=== PATIENT | female | born 1960 | race African-American/Black ===

== ENCOUNTER 2016-12-07 03:52 | Emergency (ER) | payer OTHER ==
[2014-05-23 12:26] VITALS: BP 136/85
[~2016-12-07] VITALS: Ht 170.2 cm; Wt 68.0 kg
[~2016-12-07 03:52] MED LIST: AMLO5TAB2 PO; CYCL10TA2 PO; DICL100G7 TP; FERR325C PO; HYDR-2666 PO; METF500T4 PO; OLME1TAB PO; OMEP40CA2 PO; RANI150T6 PO; ZOLP12.52 PO
[2016-12-07] MEDS ORDERED: ONDANSETRON ODT 4 MG TAB.RAPDIS PO ONE (05:15)
[2016-12-07] MEDS ORDERED: KETOROLAC TROMETHAMINE 60 MG/2 ML SYRINGE. IM ONE (05:15)
[2016-12-07 05:22] LABS: OBC FLU VALID
[2016-12-07] MEDS ORDERED: ONDA4TAB7 PO (05:47)
--- NOTE | 2016-12-07 05:47 | PHYS DOC ---
Past Medical History Past Medical History: Diabetes-Type II, Hypertension Past Surgical History: No Surgical History Alcohol Use: None Drug Use: None Adult General Chief Complaint Chief Complaint: FLU SYMPTOM HPI HPI This is a healthy 55-year-old female who has had ongoing influenza illness for the last week. Patient tested positive for influenza approximately one week ago and is still having significant congestion, nausea, vomiting, and bodyaches. She reports continued cough with her symptoms. She denies any significant chest pain or shortness of breath. She does have history of hypertension and diabetes. Review of Systems Review of Systems Constitutional: Has fever, has chills [] Eyes: Denies change in visual acuity, redness, or eye pain [] HENT: Denies nasal congestion or sore throat [] Respiratory: Denies cough or shortness of breath [] Cardiovascular: No additional information not addressed in HPI [] GI: Denies abdominal pain, has nausea, has vomiting, denies bloody stools or diarrhea [] : Denies dysuria or hematuria [] Musculoskeletal: Denies back pain or joint pain [] Integument: Denies rash or skin lesions [] Neurologic: Denies headache, focal weakness or sensory changes [] Endocrine: Denies polyuria or polydipsia [] Current Medications Current Medications Current Medications Medications (Trade) Dose Ordered Sig/[facility] Start Time Stop Time Status Last Admin Dose Admin Ketorolac Tromethamine (Toradol Im) 60 mg 1X ONCE 12/07/16 05:15 12/07/16 05:16 DC 12/07/16 05:33 60 MG Ondansetron HCl (Zofran Odt) 4 mg 1X ONCE 12/07/16 05:15 12/07/16 05:16 DC 12/07/16 05:33 4 MG Allergies Allergies Allergies Coded Allergies Type Severity Reaction Last Updated Verified No Known Drug Allergies 05/23/14 No Physical Exam Physical Exam Constitutional: Well developed, well nourished, no acute distress, non-toxic appearance. [] HENT: Normocephalic, atraumatic, bilateral external ears normal, oropharynx moist, no oral exudates, nose normal. [] Eyes: PERRLA, EOMI, conjunctiva normal, no discharge. [] Neck: Normal range of motion, no tenderness, supple, no stridor. [] Cardiovascular:Heart rate regular rhythm, no murmur [] Lungs & Thorax: Bilateral breath sounds clear to auscultation [] Abdomen: Bowel sounds normal, soft, no tenderness, no masses, no pulsatile masses. [] Skin: Warm, dry, no erythema, no rash. [] Back: No tenderness, no CVA tenderness. [] Extremities: No tenderness, no cyanosis, no clubbing, ROM intact, no edema. [] Neurologic: Alert and oriented X 3, normal motor function, normal sensory function, no focal deficits noted. [] Psychologic: Affect normal, judgement normal, mood normal. [] Current Patient Data Vital Signs Vital Signs Date Time Temp Pulse Resp B/P Pulse Ox O2 Delivery O2 Flow Rate FiO2 12/07/16 04:45 99.2 107 16 97 Room Air 99.2 Lab Values Laboratory Tests Test 12/07/16 04:38 Influenza Type A Antigen Positive (NEGATIVE) Influenza Type B Antigen Negative (NEGATIVE) EKG EKG [] Radiology/Procedures Radiology/Procedures One view of the chest as interpreted by me and the radiologist does not reveal an acute cardiopulmonary process. Course & Med Decision Making Course & Med Decision Making Pertinent Labs and Imaging studies reviewed. (See chart for details) This 55-year-old female appears nontoxic in appearance and tested positive for influenza type A. Her chest film was negative. There is no indication at this time to perform any laboratory workup. I will be prescribing her a course of Tessalon Perles and Zofran for her symptoms with strict instruction remain well- hydrated at home. She is outside the window to treat with any Tamiflu Dragon Disclaimer Dragon Disclaimer This electronic medical record was generated, in whole or in part, using a voice recognition dictation system. Departure Departure Impression: Primary Impression: Influenza A Disposition: 01 HOME, SELF-CARE Admitting Physician: Other Condition: STABLE Referrals: ELIDIA CAMACHO MD (PCP) Patient Instructions: Influenza A (H1N1) Additional Instructions: Please follow up with your primary doctor in the next 2-3 days for your flu- like symptoms. Take zofran for any nausea. Continue to stay well hydrated. Return to the ER if you develop any worsening of your symptoms. Scripts Benzonatate (Tessalon Perle)100 Mg [id number] Mg PO TID PRN COUGH #15 CAP Prov:FERNANDA AKINS DO 12/07/16 Ondansetron Hcl (Zofran)4 Mg Tablet4 Mg PO BID PRN NAUSEA/VOMITING #10 TAB Prov:FERNANDA AKINS DO 12/07/16 FERNANDA AKINS DO Dec 07, 2016 05:47
[2016-12-07] MEDS ORDERED: BENZ100C PO (05:56)
--- NOTE | 2016-12-07 07:31 | RAD ---
Single view chest History:Cough tonight An AP view of the chest is submitted. Comparison: 05/30/2013. Findings: There is no significant infiltrate, pleural effusion, or pneumothorax. The pericardial cardiac silhouette is within normal limits in size. The trachea is in the midline. There is atherosclerotic carotid calcification aortic arch. Impression: There is no evidence of acute cardiopulmonary disease.
== END 2016-12-07 06:09 | disposition home or self-care (01) ==
LOC: ER 03:52
DX: J09.X2 Influenza due to identified novel influenza A virus with other respiratory manifestations (principal); R11.2 Nausea with vomiting, unspecified; E11.9 Type 2 diabetes mellitus without complications; I10 Essential (primary) hypertension
CPT/HCPCS: 71010; 87804; 96372; 99285; J1885; Q0162

== ENCOUNTER → 2018-01-19 | Day surgery (SDC) | payer OTHER ==
[~2018-01-19] MED LIST changes: -AMLO5TAB2 PO; -CYCL10TA2 PO; -DICL100G7 TP; -FERR325C PO; -HYDR-2666 PO; -METF500T4 PO; -OLME1TAB PO; -OMEP40CA2 PO; +PROPOFOL 40 ML IV; -RANI150T6 PO; -ZOLP12.52 PO
[2018-01-19] MEDS: IV RINGERS,LACTATED 500ML 500 ML IV (08:43)
== END | disposition home or self-care (01) ==
LOC: SURG 07:50
DX: Z09 Encounter for follow-up examination after completed treatment for conditions other than malignant neoplasm (principal); Z86.010 Personal history of colon polyps; F41.9 Anxiety disorder, unspecified; I10 Essential (primary) hypertension; F32.9 Major depressive disorder, single episode, unspecified; E11.9 Type 2 diabetes mellitus without complications; D64.9 Anemia, unspecified; Z87.440 Personal history of urinary (tract) infections; G89.29 Other chronic pain; Z98.51 Tubal ligation status; Z98.890 Other specified postprocedural states; Z79.84 Long term (current) use of oral hypoglycemic drugs; Z79.899 Other long term (current) drug therapy
CPT/HCPCS: 45378; J2704

== ENCOUNTER → 2018-02-01 | Outpatient (CLI) | payer OTHER | END | disposition home or self-care (01) | LOC: US 07:58 | DX: N18.2 Chronic kidney disease, stage 2 (mild) (principal) | CPT/HCPCS: 76770 ==

== ENCOUNTER → 2020-03-27 | Outpatient (CLI) | payer OTHER ==
[2018-01-19 09:32] VITALS: BP 133/75
[~2020-03-27] MED LIST changes: +AMLO5TAB10 PO; +BENZ100C PO; +CYCL10TA2 PO; +DICL100G54 TP; +FERR325C PO; +HYDR-2761 PO; +METF500T16 PO; +OLME1TAB21 PO; +OMEP40CA2 PO; +ONDA4TAB7 PO; -PROPOFOL 40 ML IV; +RANI-376 PO; +ZOLP12.52 PO
--- NOTE | 2020-03-27 15:59 | RAD ---
Pelvic ultrasound HISTORY: Evaluate for ovarian cysts or fibroids. COMPARISON: None Transabdominal scan: Ovaries and uterus are poorly seen. Endovaginal scan: Uterus measures 5.9 x 3.2 x 2.5 cm. Endometrial tissue appears homogeneous without evidence of a focal mass. Endometrial stripe measures 6 mm with trace fluid within the endometrial canal. Left ovary measures 27 x 16 x 17 mm without evidence of a focal mass or cyst. Intact left ovarian blood flow without area of hypervascularity. Right ovary measures 23 x 10 x 8 mm without evidence of cyst or focal lesion. Intact blood supply to the right ovary without abnormal hypervascularity. IMPRESSION: 1. Trace fluid within the endometrial canal. 2. Otherwise no sonographic abnormality. Electronically signed by: Berhane Lazo MD (03/27/2020 3:56 PM) [id number]
== END | disposition home or self-care (01) ==
LOC: US 13:56
PROVIDERS: ATTEND Obstetrics & Gynecology
DX: N83.299 Other ovarian cyst, unspecified side (principal)
CPT/HCPCS: 76830; 76856